=== PATIENT | male | born 1975 | race African-American/Black ===

== ENCOUNTER 2017-03-31 15:30 | Emergency (ER) | payer MEDICARE, OTHER ==
[~2017-03-31 15:30] MED LIST: BENZ1TAB PO; DICL75 PO; RISP3TAB23 PO; ROBA750T3 PO
[2017-03-31 15:31] VITALS: BP 123/73; PULSE 93; RESP 18; TEMP 99.7; O2SAT 98
--- NOTE | 2017-03-31 18:41 | PD ---
HPI Chief Complaint: Oral / Dental Pain or Problem Time Seen by Provider: 15:42 Travel History International Travel<30 days: No Contact w/Intl Traveler<30days: No Traveled to known affect area: No History of Present Illness HPI Patient is a 41-year-old male presenting to the emergency department for evaluation a toothache that started yesterday, toothache is on the right upper side. He noticed mild facial swelling this morning. No fevers. No dysphagia, no drooling, no documented fevers at home. He denies any nausea, vomiting, headache, sore throat. He has not attempted to contact a dentist. He has not taken anything to alleviate the pain. Toothache started gradually and worsened this morning prompting his visit to the emergency department. Patient reports broken teeth PFSH Past Medical History Schizophrenia: Yes Past Surgical History AICD: No Arteriovenous Shunt: No Insulin Pump: No Social History Alcohol Use: Yes (STATES SOCIAL USE OF ETOH, LAST TIME AROUND [place]) Tobacco Use: Yes (1/2 PPD CIGARETTES) Substance Use: No Allergies-Medications (Allergen,Severity, Reaction): Coded Allergies: No Known Allergies (Verified , 05/09/15) Reported Meds & Prescriptions Reported Meds & Active Scripts Active Robaxin-750 (Methocarbamol) 750 Mg Tab 750 Mg PO QID PRN Diclofenac Sodium 75 Mg Tab 75 Mg PO BID PRN Reported Risperdal (Risperidone) 3 Mg Tab 3 Mg PO Q12 Cogentin (Benztropine Mesylate) 1 Mg Tab 2 Mg PO BID Review of Systems Except as stated in HPI: all other systems reviewed are Neg HENT: Positive: Dental Difficulties, No: Headaches, Sore Throat Gastrointestinal: No: Nausea, Vomiting, Dysphagia Physical Exam Narrative GENERAL: Well-developed, well-nourished, alert male. In no acute distress. SKIN: Warm and dry. Mild edema noted to right cheek, no erythema noted. HEAD: Normocephalic. EYES: No scleral icterus. No injection or drainage. NECK: No obvious deformity. CARDIOVASCULAR: Regular rate RESPIRATORY: No increased work of breathing, no accessory muscle use, no nasal flaring. Data Data Last Documented VS Vital Signs Date Time Temp Pulse Resp B/P (MAP) Pulse Ox O2 Delivery O2 Flow Rate FiO2 03/31/17 15:31 99.7 93 18 123/73 (90) 98 Room Air MDM Medical Decision Making Medical Screen Exam Complete: Yes Emergency Medical Condition: Yes Interpretation(s) Vital Signs Date Time Temp Pulse Resp B/P (MAP) Pulse Ox O2 Delivery O2 Flow Rate FiO2 03/31/17 15:31 99.7 93 18 123/73 (90) 98 Room Air Differential Diagnosis Dentalgia versus dental abscess versus dental caries versus cellulitis versus other Narrative Course Patient is a 41-year-old male that presented to emergency for evaluation of one day of a toothache with subsequent facial swelling. Vital signs reviewed, they' re stable. Patient awaiting bed placement. Patient was initially seen in triage. Patient decided that he did not want to wait and would come back in the morning. Patient was advised that symptoms may worsen overnight and was encouraged to stay to be evaluated. Patient continued to decline further evaluation.Patient Claudio Mix has decided to leave the hospital against medical advice. This patient has the capacity to refuse care and understands the risks of leaving, including permanent disability and/or , and has had an opportunity to ask questions about his condition. The patient has been informed that he may return for care at any time, and follow up has been arranged/advised. Diagnosis Primary Impression: Left against medical advice Yue Forman Mar 31, 2017 18:41
== END 2017-03-31 18:30 | disposition left against medical advice (07) ==
LOC: NED 15:30
DX: K08.89 Other specified disorders of teeth and supporting structures (principal); F17.210 Nicotine dependence, cigarettes, uncomplicated; F20.9 Schizophrenia, unspecified
CPT/HCPCS: 99281